=== PATIENT | male | born 1955 | race Hispanic/Latino ===

== ENCOUNTER 2019-11-17 21:12 | Inpatient (IN) | payer OTHER ==
[~2019-11-17] VITALS: Ht 167.6 cm; Wt 84.9 kg
[2019-11-17] MEDS ORDERED: CEFTRIAXONE SODIUM 2 GM VIAL ONE (21:41)
[2019-11-17 22:14] LABS: BASOPHILS % (AUTO) 0.5 % (0.0-5.0); EOSINOPHILS % (AUTO) 0.9 % (0.0-8.0); HEMATOCRIT 48.6 % (42-54); LYMPHOCYTES % (AUTO) 28.2 % (21.0-51.0); MEAN CORPUSCULAR HEMOGLOBIN 31.2 pg (27.0-33.0); MEAN CORPUSCULAR HGB CONC 30.7 g/dL (32.0-36.0); MEAN CORPUSCULAR VOLUME 101.7 fL (79-99); MONOCYTES % (AUTO) 11.7 % (3.0-13.0); NEUTROPHILS % (AUTO) 58.6 % (40.0-77.0); PLATELET COUNT (AUTO) 208 K/uL (130-400); RED BLOOD CELL COUNT(AUTO) 4.78 MIL/uL (4.50-6.20); RED CELL DISTRIBUTION WIDTH 15.6 % (11.0-15.5); WHITE BLOOD COUNT (AUTO) 8.6 K/uL (4.8-10.8)
[2019-11-17 22:21] LABS: ABG BASE EXCESS 5.8 mmol/L (-2.0-3.0); ABG HCO3 35.6 mmol/L (21.0-28.0); ABG OXYGEN SATURATION 95.1 % (95.0-99.0); ABG PCO2 77 mmHg (35-48)
[2019-11-17 22:31] LABS: CREATININE 1.3 mg/dL (0.5-1.5); POTASSIUM 3.8 mmol/L (3.5-5.1)
[2019-11-17 22:36] LABS: INR 1.12 (0.85-1.15); PARTIAL THROMBOPLASTIN TIME 24.8 SEC (26.3-35.5)
[2019-11-17 22:39] LABS: B-TYPE NATRIURETIC PEPTIDE 698 pg/mL (0-100)
[2019-11-17 22:39] LABS: APPEARANCE,URINE Clear (CLEAR); BILIRUBIN,URINE Negative (NEGATIVE); COLOR,URINE Yellow (YELLOW); GLUCOSE, URINE (UA) Negative (NEGATIVE); KETONES,URINE Negative (NEGATIVE); LEUKOCYTE ESTERASE ,URINE Negative (NEGATIVE); NITRATE,URINE Negative (NEGATIVE); OCCULT BLOOD,URINE Small (NEGATIVE); PROTEIN,URINE POS 2+ mg/dL (NEGATIVE)
[2019-11-17 22:45] LABS: ALBUMIN 3.2 g/dL (3.5-5.0); BILIRUBIN,TOTAL 0.7 mg/dL (0.2-1.0); TOTAL PROTEIN, SERUM 6.9 g/dL (6.0-8.3); TROPONIN I 0.14 ng/mL (0.00-0.06)
[2019-11-17 22:51] LABS: BACTERIA,URINE None Seen /HPF (None Seen); RBC,URINE 0-1 /HPF (0-1); SQUAMOUS EPITHELIAL CELL,UR Rare /HPF (0-2); WBC,URINE None Seen /HPF (0-1)
[2019-11-17] MEDS ORDERED: ALBUTEROL INHALER 90MCG/INH IH ONE (22:56)
[2019-11-17] MEDS ORDERED: ASPIRIN 325 MG TABLET ONE (22:56)
[2019-11-17] MEDS ORDERED: METHYLPREDNISOLONE SOD SUCC 125MG/2ML VIAL ONE (22:57)
[2019-11-17] MEDS ORDERED: NITROGLYCERIN 1GM/1 INCH PACKET TD ONE (22:57)
[2019-11-17] MEDS ORDERED: METOPROLOL TARTRATE 1 MG/ML 5ML VIAL IV ONE (23:25)
[2019-11-18] MEDS ORDERED: ALBUTEROL INHALER 90MCG/INH IH PRN (00:15)
[2019-11-18] MEDS ORDERED: DIPHENHYDRAMINE HCL 25 MG CAPSULE PO PRN (00:15)
[2019-11-18] MEDS ORDERED: NITROGLYCERIN 0.4 MG SL TAB SL PRN (00:15)
[2019-11-18] MEDS ORDERED: CEFTRIAXONE SODIUM 1 GM IVP SCH (00:15)
[2019-11-18] MEDS ORDERED: ERGOCALCIFEROL (VITAMIN D2) 50,000 UNIT CAPSULE PO ONE (00:15)
[2019-11-18] MEDS ORDERED: ONDANSETRON HCL 4 MG/2 ML VIAL IV PRN (00:15)
[2019-11-18] MEDS: AZITHROMYCIN 500MG+NS 250ML 250 ML IV SCH (00:15)
[2019-11-18] MEDS ORDERED: ACETAMINOPHEN 325 MG TAB PO PRN ×2 (00:15)
[2019-11-18 00:28] LABS: CRP QUANTITATIVE 21.1 mg/L (0.00-9.0)
[2019-11-18] MEDS ORDERED: ERGOCALCIFEROL (VITAMIN D2) 50,000 UNIT CAPSULE ONE (00:53)
[2019-11-18] MEDS ORDERED: FUROSEMIDE 10 MG/ML 4ML VIAL IV SCH ×2 (01:15→09:15)
[2019-11-18] MEDS ORDERED: IOHEXOL-350 75 ML VIAL IV ONE (01:45)
[2019-11-18 01:48] LABS: TROPONIN I 0.14 ng/mL (0.00-0.06)
[2019-11-18] MEDS ORDERED: ZOSYN 3.375GM+NS 50ML 50 ML IV ONE ×3 (04:42→22:05)
[2019-11-18] MEDS ORDERED: ZOSYN 3.375GM+NS 50ML 50 ML IV SCH (05:00)
[2019-11-18 05:45] LABS: TROPONIN I 0.14 ng/mL (0.00-0.06)
[2019-11-18] MEDS: METHYLPREDNISOLONE SOD SUCC 40MG/ML 1ML IVP SCH ×3 (06:00→22:00)
[2019-11-18] MEDS ORDERED: AZITHROMYCIN 500MG+NS 250ML 250 ML IV ONE (07:14)
[2019-11-18 08:48] LABS: ABG BASE EXCESS 3.7 mmol/L (-2.0-3.0); ABG HCO3 34.4 mmol/L (21.0-28.0); ABG PCO2 84 mmHg (35-48)
[2019-11-18] MEDS: ASCORBIC ACID 500 MG TAB PO SCH (09:00)
[2019-11-18] MEDS: ACETYLCYSTEINE 600 MG CAPSULE PO SCH ×2 (09:00→21:00)
[2019-11-18] MEDS ORDERED: ENOXAPARIN SODIUM 100 MG/1 ML SQ SCH (09:00)
[2019-11-18] MEDS: ZINC SULFATE 220 CAPSULE PO SCH (09:00)
[2019-11-18] MEDS: FAMOTIDINE 20MG TAB 20 MG TAB PO SCH (09:00)
[2019-11-18] MEDS ORDERED: ASPIRIN 325 MG TABLET PO SCH (09:00)
[2019-11-18] MEDS ORDERED: METHYLPREDNISOLONE SOD SUCC 40MG/ML 1ML ONE ×2 (09:31→18:12)
[2019-11-18] MEDS ORDERED: ASCORBIC ACID 500 MG TAB ONE (09:31)
[2019-11-18] MEDS ORDERED: ASPIRIN 81MG TAB.CHEW ONE (09:31)
[2019-11-18] MEDS ORDERED: FUROSEMIDE 10 MG/ML 4ML VIAL ONE (09:32)
[2019-11-18] MEDS ORDERED: ZINC SULFATE 220 CAPSULE ONE (09:32)
[2019-11-18] MEDS ORDERED: ACETYLCYSTEINE 600 MG CAPSULE ONE ×2 (09:32→21:10)
[2019-11-18] MEDS ORDERED: FUROSEMIDE 10 MG/ML 2ML VIAL ONE ×2 (09:34→21:10)
[2019-11-18 10:37] LABS: TROPONIN I 0.14 ng/mL (0.00-0.06)
[2019-11-18 11:06] LABS: ABG BASE EXCESS 3.2 mmol/L (-2.0-3.0); ABG HCO3 34.6 mmol/L (21.0-28.0); ABG OXYGEN SATURATION 96.4 % (95.0-99.0); ABG PCO2 91 mmHg (35-48)
--- NOTE | 2019-11-18 11:40 | NUR ---
Bipap changes made 20/[address] Robertson. Nory RN notified.
[2019-11-18] MEDS ORDERED: ENOXAPARIN SODIUM 100 MG/1 ML SQ ONE (11:41)
[2019-11-18] MEDS ORDERED: FAMOTIDINE/PF 20 MG/2 ML VIAL IV ONE (11:43)
[2019-11-18 13:50] LABS: ABG BASE EXCESS 9.4 mmol/L (-2.0-3.0); ABG OXYGEN SATURATION 93.3 % (95.0-99.0); ABG PCO2 77 mmHg (35-48)
[2019-11-18 13:50] LABS: CREATININE 1.4 mg/dL (0.5-1.5); POTASSIUM 3.7 mmol/L (3.5-5.1)
--- NOTE | 2019-11-18 15:54 | NUR ---
cm note call made to listed phone contacts for pt, and no answer. will continue to followup with pt.
[2019-11-18 16:37] LABS: HEMOGLOBIN A1C 7.2 % (4.0-6.0)
[2019-11-18 16:54] LABS: TROPONIN I 0.06 ng/mL (0.00-0.06)
[2019-11-18] MEDS: ZOSYN 3.375GM+NS 50ML 50 ML IV SCH (21:00)
[2019-11-18] MEDS: ENOXAPARIN SODIUM 30 MG/0.3 ML SQ SCH (21:00)
[2019-11-18] MEDS ORDERED: ENOXAPARIN SODIUM 30 MG/0.3 ML SQ ONE (21:11)
[2019-11-18] MEDS: ALBUTEROL SULFATE 0.083% 2.5 MG/3 ML INH IH SCH (22:00)
[2019-11-19] MEDS: AZITHROMYCIN 500MG+NS 250ML 250 ML IV SCH (00:15)
[2019-11-19 03:55] LABS: HEMATOCRIT 47.9 % (42-54); MEAN CORPUSCULAR HEMOGLOBIN 31.1 pg (27.0-33.0); MEAN CORPUSCULAR HGB CONC 31.5 g/dL (32.0-36.0); MEAN CORPUSCULAR VOLUME 98.6 fL (79-99); MONOCYTES % (AUTO) 6.9 % (3.0-13.0); NEUTROPHILS % (AUTO) 84.7 % (40.0-77.0); PLATELET COUNT (AUTO) 201 K/uL (130-400); RED BLOOD CELL COUNT(AUTO) 4.86 MIL/uL (4.50-6.20); RED CELL DISTRIBUTION WIDTH 14.9 % (11.0-15.5); WHITE BLOOD COUNT (AUTO) 8.4 K/uL (4.8-10.8)
[2019-11-19 04:07] LABS: ALANINE AMINOTRANSFERASE 58 U/L (12-78); ALBUMIN 3.2 g/dL (3.5-5.0); ASPARTATE AMINOTRANSFERASE 20 U/L (10-37); BILIRUBIN,TOTAL 1.6 mg/dL (0.2-1.0); CHLORIDE 100 mmol/L (101-111); CREATININE 1.1 mg/dL (0.5-1.5); GLOMERULAR FILTR. RATE CALC 72 mL/min (>60); GLUCOSE,RANDOM 171 mg/dL (70-105); LACTATE DEHYDROGENASE 163 U/L (81-234); POTASSIUM 3.5 mmol/L (3.5-5.1); SODIUM SERUM 144 mmol/L (136-145); UREA NITROGEN, BLOOD 20 mg/dL (7-18)
[2019-11-19 04:13] LABS: CARBON DIOXIDE 46 mmol/L (21-32)
[2019-11-19] MEDS: ALBUTEROL SULFATE 0.083% 2.5 MG/3 ML INH IH SCH ×2 (06:00→18:40)
[2019-11-19] MEDS: METHYLPREDNISOLONE SOD SUCC 40MG/ML 1ML IVP SCH ×3 (06:53→21:19)
[2019-11-19] MEDS: ZOSYN 3.375GM+NS 50ML 50 ML IV SCH ×3 (06:53→21:18)
[2019-11-19 08:17] VITALS: BP 158/94
[2019-11-19] MEDS: FAMOTIDINE 20MG TAB 20 MG TAB PO SCH (09:55)
[2019-11-19] MEDS: ASCORBIC ACID 500 MG TAB PO SCH (09:55)
[2019-11-19] MEDS: ENOXAPARIN SODIUM 30 MG/0.3 ML SQ SCH ×2 (09:56→21:18)
[2019-11-19] MEDS: ZINC SULFATE 220 CAPSULE PO SCH (09:56)
[2019-11-19] MEDS: FUROSEMIDE 10 MG/ML 2ML VIAL IV SCH ×2 (09:57→21:18)
[2019-11-19] MEDS ORDERED: ASPIRIN 81MG TAB.CHEW ONE (09:59)
[2019-11-19] MEDS: ACETYLCYSTEINE 600 MG CAPSULE PO SCH ×2 (10:02→21:18)
[2019-11-19 11:00] VITALS: BP 140/89
[2019-11-19 15:00] VITALS: BP 143/83
[2019-11-19 22:40] VITALS: BP 152/85
[2019-11-20] MEDS: AZITHROMYCIN 500MG+NS 250ML 250 ML IV SCH (02:52)
[2019-11-20 04:00] VITALS: BP 135/85
[2019-11-20 04:34] LABS: ABG BASE EXCESS 21.3 mmol/L (-2.0-3.0); ABG OXYGEN SATURATION 80.7 % (95.0-99.0); ABG PCO2 79 mmHg (35-48)
[2019-11-20 05:19] LABS: HEMATOCRIT 48.9 % (42-54); MEAN CORPUSCULAR HEMOGLOBIN 30.9 pg (27.0-33.0); MEAN CORPUSCULAR HGB CONC 31.7 g/dL (32.0-36.0); MEAN CORPUSCULAR VOLUME 97.4 fL (79-99); MONOCYTES % (AUTO) 5.1 % (3.0-13.0); NEUTROPHILS % (AUTO) 86.7 % (40.0-77.0); PLATELET COUNT (AUTO) 210 K/uL (130-400); RED BLOOD CELL COUNT(AUTO) 5.02 MIL/uL (4.50-6.20); RED CELL DISTRIBUTION WIDTH 14.9 % (11.0-15.5); WHITE BLOOD COUNT (AUTO) 8.8 K/uL (4.8-10.8)
[2019-11-20 05:35] LABS: ALANINE AMINOTRANSFERASE 46 U/L (12-78); ALBUMIN 3.2 g/dL (3.5-5.0); ASPARTATE AMINOTRANSFERASE 21 U/L (10-37); BILIRUBIN,TOTAL 1.8 mg/dL (0.2-1.0); CHLORIDE 95 mmol/L (101-111); CREATININE 1.2 mg/dL (0.5-1.5); GLOMERULAR FILTR. RATE CALC 65 mL/min (>60); GLUCOSE,RANDOM 174 mg/dL (70-105); LACTATE DEHYDROGENASE 162 U/L (81-234); POTASSIUM 3.4 mmol/L (3.5-5.1); SODIUM SERUM 141 mmol/L (136-145); UREA NITROGEN, BLOOD 22 mg/dL (7-18)
[2019-11-20 05:58] LABS: CARBON DIOXIDE 48 mmol/L (21-32)
[2019-11-20] MEDS: ALBUTEROL SULFATE 0.083% 2.5 MG/3 ML INH IH SCH ×3 (06:15→22:27)
[2019-11-20] MEDS: METHYLPREDNISOLONE SOD SUCC 40MG/ML 1ML IVP SCH ×2 (06:17→14:09)
[2019-11-20] MEDS: ZOSYN 3.375GM+NS 50ML 50 ML IV SCH ×3 (06:18→20:39)
--- NOTE | 2019-11-20 07:40 | NUR ---
ASSESSMENT ENCOUNTERED PT A&OX3 BUT FORGETFUL, CALM COOPERATIVE AND DOES NOT APPEAR TO BE IN ANY DISTRESS NOR ANY NEURO DEFICITS PRESENT NOR ANY NEURO DEFICITS PRESENT. DR FRANCO AT BEDSIDE, UPDATE GIVEN, ORDERS RECEIVED, BULLOCK CATH REMOVED, TOLERATED WELL, PT AMBULATING, GAIT SLOW BUT STEADY WITH 1-2 PERSON ASSIST, PT DENIES SOB, NAUSEA. CALL LIGHT WITHIN REACH.
[2019-11-20 08:30] VITALS: BP 132/87
[2019-11-20 11:30] VITALS: BP 152/87
[2019-11-20] MEDS: ZINC SULFATE 220 CAPSULE PO SCH (14:10)
[2019-11-20] MEDS: ACETYLCYSTEINE 600 MG CAPSULE PO SCH ×2 (14:10→20:39)
[2019-11-20] MEDS: FAMOTIDINE 20MG TAB 20 MG TAB PO SCH (14:11)
[2019-11-20] MEDS: ASPIRIN 81MG TAB.CHEW PO SCH (14:11)
[2019-11-20] MEDS: ASCORBIC ACID 500 MG TAB PO SCH (14:11)
[2019-11-20] MEDS: FUROSEMIDE 10 MG/ML 2ML VIAL IV SCH (14:12)
[2019-11-20] MEDS: ENOXAPARIN SODIUM 30 MG/0.3 ML SQ SCH ×2 (14:12→20:43)
--- NOTE | 2019-11-20 16:45 | NUR ---
MICHEL RAMIREZ/IA MET WITH PATIENT IN ROOM. PER PATIENT, LIVES WITH SPOUSE, IS INDEPENDENT WITH ADLS, NO USE OF DME, NO PROVIDER SERVICES, DRIVES, AND FEELS SAFE TO RETURN HOME ONCE DISCHARGED. Addendum: 11/20/19 at 1646 by MARGARITO ROME RN CM Amended: Links added.
[2019-11-20 17:11] VITALS: BP 140/84
[2019-11-20] MEDS ORDERED: PHARMACY COMMUNICATION MISC SCH (17:15)
[2019-11-20] MEDS ORDERED: DEXTROSE 50%-WATER 50 ML DISP.SYRIN IV PRN (17:30)
[2019-11-20] MEDS ORDERED: GLUCAGON 1MG KIT 1 MG ML IM PRN (17:30)
[2019-11-20] MEDS: INSULIN HUMULIN R 100 UNIT/ML 3ML SQ SCH ×2 (17:30→20:46)
[2019-11-20 19:30] VITALS: BP 142/82
[2019-11-20 23:47] VITALS: BP 144/92
[2019-11-21] MEDS ORDERED: LORAZEPAM 2 MG/ML 1 ML VIAL IVP ONE (01:00)
[2019-11-21] MEDS: AZITHROMYCIN 500MG+NS 250ML 250 ML IV SCH ×2 (01:02→23:58)
--- NOTE | 2019-11-21 01:02 | NUR ---
Confusion Patient continues to be confused, getting out of bed, removing his telemetry pack and pulling out his IV access. IV access 20g to right forearm replaced. HAND PROFILER Balank informed with orders for Ativan 1mg IVP x 1. patient transferred to another room and report given to Margot MANDUJANO.
[2019-11-21] MEDS ORDERED: LORAZEPAM 2 MG/ML 1 ML VIAL ONE (01:09)
--- NOTE | 2019-11-21 01:10 | NUR ---
Confused / Agitated. Pt. was just transferred to room via bed. Still confused and agitated. Ativan 1 mg via IV x 1 dose given as ordered.
[2019-11-21 04:00] VITALS: BP_SYST 106; BP_SYST 138; BP_DIAS 59; BP_DIAS 88
[2019-11-21] MEDS ORDERED: POTASSIUM CHLORIDE 10% ELIXIR 20 MEQ/15 ML UDCUP PO PRN (04:30)
[2019-11-21] MEDS ORDERED: LIDOCAINE HCL-MPF 1% 2ML VIAL IV PRN (04:30)
[2019-11-21] MEDS: ZOSYN 3.375GM+NS 50ML 50 ML IV SCH ×3 (04:54→22:29)
[2019-11-21] MEDS ORDERED: FUROSEMIDE 10 MG/ML 2ML VIAL IV SCH (05:00)
--- NOTE | 2019-11-21 05:25 | NUR ---
CONFUSED /COMBATIVE Informed on-call SUPERVISOR KENNEL ( Jagruti Cervantes) with an order to give Geodon 10 mg IM x 1 dose only.
[2019-11-21 05:28] LABS: BASOPHILS % (AUTO) 0.1 % (0.0-5.0); HEMATOCRIT 54.9 % (42-54); LYMPHOCYTES % (AUTO) 11.9 % (21.0-51.0); MEAN CORPUSCULAR HEMOGLOBIN 31.1 pg (27.0-33.0); MEAN CORPUSCULAR HGB CONC 31.7 g/dL (32.0-36.0); MONOCYTES % (AUTO) 11.5 % (3.0-13.0); NEUTROPHILS % (AUTO) 76.3 % (40.0-77.0); PLATELET COUNT (AUTO) 239 K/uL (130-400); RED CELL DISTRIBUTION WIDTH 15.3 % (11.0-15.5); WHITE BLOOD COUNT (AUTO) 13.5 K/uL (4.8-10.8)
[2019-11-21 05:45] LABS: ALBUMIN 3.7 g/dL (3.5-5.0); BILIRUBIN,TOTAL 2.6 mg/dL (0.2-1.0); CREATININE 1.1 mg/dL (0.5-1.5); CRP QUANTITATIVE 11.1 mg/L (0.00-9.0); POTASSIUM 3.7 mmol/L (3.5-5.1); TOTAL PROTEIN, SERUM 7.8 g/dL (6.0-8.3)
[2019-11-21] MEDS ORDERED: ZIPRASIDONE MESYLATE 20 MG/VIAL IM SCH (05:45)
[2019-11-21] MEDS ORDERED: ZIPRASIDONE MESYLATE 20 MG/VIAL IM ONE (05:52)
[2019-11-21] MEDS: INSULIN HUMULIN R 100 UNIT/ML 3ML SQ SCH ×4 (06:23→22:31)
[2019-11-21] MEDS: ALBUTEROL SULFATE 0.083% 2.5 MG/3 ML INH IH SCH ×3 (06:35→23:16)
[2019-11-21 07:00] VITALS: BP 110/66
--- NOTE | 2019-11-21 08:00 | NUR ---
AM ASSESSMENT PT AWAKENS WITH VERBAL STIMULATION, CONFUSED PHRASES, ORIENTED TO PERSON ONLY. RE-ORIENTED AND REDIRECTED NEEDED, SITTER AT BEDSIDE.
[2019-11-21] MEDS ORDERED: PREDNISONE 20 MG TABLET PO SCH (09:00)
[2019-11-21] MEDS: ACETYLCYSTEINE 600 MG CAPSULE PO SCH ×2 (09:00→22:29)
--- NOTE | 2019-11-21 09:47 | NUR ---
CONFIRMED PT STATUS WITH DAUGHTER ELIAS VIA PHONE PATIENT LIVES WITH SPOUSE RISSA YORK AND PREVIOUSLY INDEPENDENT AND ALERT. STATES HAS BEEN GETTING A LITTLE LOST WHEN DRIVING BUT OTHERWISE HAS NOT HAD PROBLEMS ADVISED HER THAT PATIENT IS VERY VERY CONFUSED AND FAMILY CAN COME AND VISIT AND PROVIDE INFORMATION AT BEDSIDE CHART REVIEWED, MICHEL LOOKING FOR ORDER FOR CT HEAD AND NH3, STILL PENDING TEXT TO DR. ANDERSON AND WILL REVIEW Addendum: 11/21/19 at 0953 by SANTY HARRIS RN CM Amended: Links added.
--- NOTE | 2019-11-21 10:45 | NUR ---
DR ANDERSON AWARE OF K LEVEL, NEW ORDERS RECEIVED
[2019-11-21 10:51] LABS: ABG BASE EXCESS 16.4 mmol/L (-2.0-3.0); ABG HCO3 44.8 mmol/L (21.0-28.0); ABG OXYGEN SATURATION 94.3 % (95.0-99.0); ABG PCO2 66 mmHg (35-48)
[2019-11-21 11:00] VITALS: BP 112/72
[2019-11-21 12:24] LABS: CREATININE 1.1 mg/dL (0.5-1.5); MAGNESIUM 2.1 mg/dL (1.80-2.40)
[2019-11-21 12:50] LABS: POTASSIUM 2.6 mmol/L (3.5-5.1)
[2019-11-21] MEDS: ZINC SULFATE 220 CAPSULE PO SCH (14:13)
[2019-11-21] MEDS: ASCORBIC ACID 500 MG TAB PO SCH (14:13)
[2019-11-21] MEDS: FAMOTIDINE 20MG TAB 20 MG TAB PO SCH (14:14)
[2019-11-21] MEDS: ASPIRIN 81MG TAB.CHEW PO SCH (14:14)
[2019-11-21] MEDS: POTASSIUM CHLORIDE 20 MEQ ERTAB PO SCH (14:15)
[2019-11-21] MEDS: ENOXAPARIN SODIUM 40 MG/0.4 ML SYRINGE SQ SCH (14:16)
[2019-11-21] MEDS: POTASSIUM CHLORIDE 10MEQ/100ML 100 ML IV PRN ×2 (14:17→16:45)
[2019-11-21 15:54] VITALS: BP 117/86
--- NOTE | 2019-11-21 17:00 | NUR ---
CALM PT ALERT AND CALM, NO ANXIETY OR DISTRESS, O2 PER NC, SPOUSE AT BEDSIDE.
[2019-11-21 20:00] VITALS: BP 124/80
[2019-11-21 23:55] VITALS: BP 140/96
[2019-11-22 04:09] VITALS: BP 135/94
[2019-11-22] MEDS: ZOSYN 3.375GM+NS 50ML 50 ML IV SCH ×3 (04:32→21:02)
[2019-11-22 05:45] LABS: LYMPHOCYTES % (AUTO) 12.8 % (21.0-51.0); MEAN CORPUSCULAR HEMOGLOBIN 30.6 pg (27.0-33.0); MEAN CORPUSCULAR HGB CONC 31.3 g/dL (32.0-36.0); MEAN CORPUSCULAR VOLUME 97.6 fL (79-99); MONOCYTES % (AUTO) 9.5 % (3.0-13.0); NEUTROPHILS % (AUTO) 77.5 % (40.0-77.0); PLATELET COUNT (AUTO) 199 K/uL (130-400); RED BLOOD CELL COUNT(AUTO) 5.33 MIL/uL (4.50-6.20); WHITE BLOOD COUNT (AUTO) 10.7 K/uL (4.8-10.8)
[2019-11-22 06:00] LABS: MAGNESIUM 2.4 mg/dL (1.80-2.40); POTASSIUM 3.1 mmol/L (3.5-5.1)
[2019-11-22] MEDS: INSULIN HUMULIN R 100 UNIT/ML 3ML SQ SCH ×4 (06:00→21:00)
[2019-11-22] MEDS: ALBUTEROL SULFATE 0.083% 2.5 MG/3 ML INH IH SCH ×3 (06:27→21:59)
[2019-11-22 08:00] VITALS: BP 114/75
[2019-11-22] MEDS: ASCORBIC ACID 500 MG TAB PO SCH (09:19)
[2019-11-22] MEDS: FAMOTIDINE 20MG TAB 20 MG TAB PO SCH (09:19)
[2019-11-22] MEDS: ACETYLCYSTEINE 600 MG CAPSULE PO SCH ×2 (09:19→21:02)
[2019-11-22] MEDS: ASPIRIN 81MG TAB.CHEW PO SCH (09:19)
[2019-11-22] MEDS: POTASSIUM CHLORIDE 20 MEQ ERTAB PO PRN ×2 (09:21→12:12)
[2019-11-22] MEDS: ZINC SULFATE 220 CAPSULE PO SCH (09:21)
[2019-11-22] MEDS: FUROSEMIDE 20 MG TABLET PO SCH ×2 (09:24→21:01)
[2019-11-22] MEDS: ENOXAPARIN SODIUM 40 MG/0.4 ML SYRINGE SQ SCH (09:25)
[2019-11-22 11:24] VITALS: BP 131/82
[2019-11-22] MEDS: POTASSIUM CHLORIDE 20 MEQ ERTAB PO SCH ×3 (12:01→21:01)
[2019-11-22] MEDS ORDERED: POTASSIUM CHLORIDE 20MEQ/100ML 100 ML IV PRN (14:30)
[2019-11-22] MEDS ORDERED: POTASSIUM CHLORIDE 10% ELIXIR 20 MEQ/15 ML UDCUP PO PRN (14:30)
[2019-11-22] MEDS ORDERED: POTASSIUM CHLORIDE 20 MEQ ERTAB PO PRN (14:30)
[2019-11-22] MEDS ORDERED: LIDOCAINE HCL-MPF 1% 2ML VIAL IV PRN (14:30)
[2019-11-22 16:12] VITALS: BP 141/60
--- NOTE | 2019-11-22 17:02 | NUR ---
EXPECT DC TO HOME - POSS IN AM . PATIENT MUCH IMPROVED AND MORE MOBILE THAT ON ADMIT. Addendum: 11/22/19 at 1703 by SANTY HARRIS RN CM Amended: Links added.
[2019-11-22 20:00] VITALS: BP 137/86
[2019-11-23] VITALS: BP 134/65
[2019-11-23] MEDS: AZITHROMYCIN 500MG+NS 250ML 250 ML IV SCH (01:12)
--- NOTE | 2019-11-23 02:15 | NUR ---
BIPAP REMOVED BY PATIENT, REFUSES TO HAVE ON. DARBY RT AWARE. PT HAD BIPAP ON FOR MOST OF THE NIGHT. HOB ELEVATED. NO DISTRESS NOTED.
--- NOTE | 2019-11-23 02:45 | NUR ---
BIPAP ON PATIENT, PT TOLERATING IT WELL, NO DISTRESS NOTED.
[2019-11-23 04:00] VITALS: BP 153/89
--- NOTE | 2019-11-23 04:45 | NUR ---
BIPAP REMOVED BY PATIENT, PT REFUSING BIPAP.
[2019-11-23] MEDS: ZOSYN 3.375GM+NS 50ML 50 ML IV SCH ×2 (05:07→13:12)
[2019-11-23 05:26] LABS: HEMATOCRIT 52.2 % (42-54); MEAN CORPUSCULAR HEMOGLOBIN 30.8 pg (27.0-33.0); MEAN CORPUSCULAR HGB CONC 31.2 g/dL (32.0-36.0); MEAN CORPUSCULAR VOLUME 98.5 fL (79-99); RED BLOOD CELL COUNT(AUTO) 5.3 MIL/uL (4.50-6.20); WHITE BLOOD COUNT (AUTO) 10.3 K/uL (4.8-10.8)
[2019-11-23] MEDS: INSULIN HUMULIN R 100 UNIT/ML 3ML SQ SCH ×2 (05:40→11:30)
[2019-11-23 05:53] LABS: MAGNESIUM 2.2 mg/dL (1.80-2.40); POTASSIUM 3.5 mmol/L (3.5-5.1)
[2019-11-23] MEDS ORDERED: SODIUM CHLORIDE 3% FOR INHALATION 4 ML/AMP VIAL.NEB IH ONE ×2 (06:38→14:00)
[2019-11-23] MEDS: ALBUTEROL SULFATE 0.083% 2.5 MG/3 ML INH IH SCH ×2 (06:41→14:03)
[2019-11-23 08:00] VITALS: BP 146/90
[2019-11-23] MEDS: FUROSEMIDE 20 MG TABLET PO SCH (09:04)
[2019-11-23] MEDS: POTASSIUM CHLORIDE 20 MEQ ERTAB PO SCH ×2 (09:05→13:24)
[2019-11-23] MEDS: ASPIRIN 81MG TAB.CHEW PO SCH (09:06)
[2019-11-23] MEDS: ASCORBIC ACID 500 MG TAB PO SCH (09:06)
[2019-11-23] MEDS: FAMOTIDINE 20MG TAB 20 MG TAB PO SCH (09:06)
[2019-11-23] MEDS: ACETYLCYSTEINE 600 MG CAPSULE PO SCH (09:06)
[2019-11-23] MEDS: ENOXAPARIN SODIUM 40 MG/0.4 ML SYRINGE SQ SCH (09:10)
[2019-11-23] MEDS: ZINC SULFATE 220 CAPSULE PO SCH (09:10)
[2019-11-23 12:00] VITALS: BP 126/94
--- NOTE | 2019-11-23 12:59 | NUR ---
as per Dr. Robertson, pt does not need bipap at this time. Leave pt on room air. Spo2 92%-93% pt up to chair. Denies sob at this time. Bipap at bedside if needed. Spoke to RN about convo with Dr. Robertson. Addendum: 11/23/19 at 1301 by MONTEZ LEDESMA RT Amended: Links added.
--- NOTE | 2019-11-23 13:47 | NUR ---
DR RODAS AT BESIDE AND DISCUSSED DC NEEDS- BIPAP PT UNINSURED STATES MAKE APPOINTMENT [facility]AN[facility] NUNEZ NEXT WEEK, WILL WILL SET UP HIM UP WITH SLEEP STUDY AND/ OR BIPAP NEEDED. PT NEEDS TO SLEEP ON HIS *SIDE* NOT ON HIS BACK, AND MAKE SURE HIS *HEAD IS ELEVATED* SPOKE TO ELIAS- DAUGHTER- SHE STATES THEY HAVE OXYGEN CONCENTRATOR AND NEBULIZER AT HOME LETY AMBRIZ WORKS FOR [employer]- ADVISED HER NO OXYGEN CONCENTRATOR, PLS VERBALIZED UNDERSTANDING OF IMPORTANCE OF SLEEP POSITION AND FOLLOW UP APT STATES WILL WAIT FOR CALL FROM RN
[2019-11-23 16:00] VITALS: BP 113/84
--- NOTE | 2019-11-23 17:18 | NUR ---
PT DISCHARGE IN GOOD CONDITION ACCOMPANIED BY FAMILY AND STAFF, DISCHARGE INSTRUCTIONS UNDERSTOOD, IV REMOVED AND TELEMETRY REMOVED W/O DIFFICULTY OR COMPLICATIONS
== END 2019-11-23 17:00 | disposition home or self-care (01) | DRG 871 ==
LOC: EDH 21:12 → EDHIP 21:13 → 2CV 11-18 22:25 → 4AH 11-19 21:14 → 4DH 11-20 23:24
PROVIDERS: ADMIT Internal Medicine; ATTEND Internal Medicine
DX: A41.9 Sepsis, unspecified organism (principal); J96.22 Acute and chronic respiratory failure with hypercapnia; J96.21 Acute and chronic respiratory failure with hypoxia; G92 Toxic encephalopathy; E87.2 Acidosis; Z68.41 Body mass index [BMI] 40.0-44.9, adult; R65.20 Severe sepsis without septic shock; E66.01 Morbid (severe) obesity due to excess calories; I50.9 Heart failure, unspecified; G47.33 Obstructive sleep apnea (adult) (pediatric); J84.10 Pulmonary fibrosis, unspecified; I27.81 Cor pulmonale (chronic); E87.6 Hypokalemia; J43.9 Emphysema, unspecified; M19.90 Unspecified osteoarthritis, unspecified site; N18.9 Chronic kidney disease, unspecified; N40.0 Benign prostatic hyperplasia without lower urinary tract symptoms; Z20.828 Contact with and (suspected) exposure to other viral communicable diseases
CPT/HCPCS: 36415; 36600; 70551; 71045; 71275; 80048; 80053; 81001; 82140; 82435; 82550; 82728; 82803; 82947; 82948; 83036; 83605; 83615; 83735; 83874; 83880; 84132; 84145; 84295; 84484; 85018; 85025; 85027; 85378; 85610; 85730; 86140; 86900; 86901; 87040; 87088; 87426; 87486; 87581; 87633; 87798; 87804; 93005; 93306; 93356; 93970; 94640; 94660; 94664; 97039; 99291; G0378; J0456; J0696; J1650; J1815; J1940; J2060; J2543; J2920; J2930; J3486; J3490; Q0163; Q9967; U0003

== ENCOUNTER 2020-07-28 10:50 | Inpatient (IN) | payer OTHER, SELFPAY ==
[~2020-07-28] VITALS: Ht 162.6 cm; Wt 91.4 kg
[2020-07-28 10:52] VITALS: BP 156/91
[2020-07-28 11:11] LABS: ABG BASE EXCESS 8.1 mmol/L (-2.0-3.0); ABG HCO3 36.3 mmol/L (21.0-28.0); ABG OXYGEN SATURATION 66.1 % (95.0-99.0); ABG PCO2 66 mmHg (35-48)
[2020-07-28 11:28] LABS: BASOPHILS % (AUTO) 0.9 % (0.0-5.0); EOSINOPHILS % (AUTO) 0.6 % (0.0-8.0); HEMATOCRIT 50.1 % (42-54); LYMPHOCYTES % (AUTO) 22.8 % (21.0-51.0); MEAN CORPUSCULAR HEMOGLOBIN 31.7 pg (27.0-33.0); MEAN CORPUSCULAR HGB CONC 30.3 g/dL (32.0-36.0); MEAN CORPUSCULAR VOLUME 104.6 fL (79-99); MONOCYTES % (AUTO) 9.5 % (3.0-13.0); NEUTROPHILS % (AUTO) 65.7 % (40.0-77.0); PLATELET COUNT (AUTO) 201 K/uL (130-400); RED BLOOD CELL COUNT(AUTO) 4.79 MIL/uL (4.50-6.20); RED CELL DISTRIBUTION WIDTH 14.6 % (11.0-15.5); WHITE BLOOD COUNT (AUTO) 6.3 K/uL (4.8-10.8)
[2020-07-28 11:41] LABS: INR 1.19 (0.85-1.15); PROTHROMBIN TIME 12.8 SEC (9.6-11.6)
[2020-07-28 11:42] LABS: CREATININE 1.2 mg/dL (0.5-1.5); PARTIAL THROMBOPLASTIN TIME 25.9 SEC (26.3-35.5); POTASSIUM 3.5 mmol/L (3.5-5.1)
[2020-07-28 11:55] LABS: ALBUMIN 3.3 g/dL (3.5-5.0); BILIRUBIN,TOTAL 1.1 mg/dL (0.2-1.0); TOTAL PROTEIN, SERUM 7.4 g/dL (6.0-8.3); TROPONIN I 0.16 ng/mL (0.00-0.06)
[2020-07-28 12:00] VITALS: BP 142/97
[2020-07-28 12:12] LABS: B-TYPE NATRIURETIC PEPTIDE 1290 pg/mL (0-100)
[2020-07-28] MEDS ORDERED: NITROGLYCERIN 1GM OINT 1 INCH/1GM TD ONE (13:30)
[2020-07-28] MEDS ORDERED: FUROSEMIDE 20MG VIAL IV ONE (13:30)
[2020-07-28 14:00] VITALS: BP 145/98
[2020-07-28] MEDS ORDERED: NITROGLYCERIN 0.4 MG SL TAB SL PRN (15:15)
[2020-07-28] MEDS ORDERED: ACETAMINOPHEN 500 MG TABLET PO PRN (15:15)
[2020-07-28 15:22] LABS: APPEARANCE,URINE Clear (CLEAR); BILIRUBIN,URINE Negative (NEGATIVE); COLOR,URINE Yellow (YELLOW); GLUCOSE, URINE (UA) Negative (NEGATIVE); KETONES,URINE Negative (NEGATIVE); LEUKOCYTE ESTERASE ,URINE Negative (NEGATIVE); NITRATE,URINE Negative (NEGATIVE); OCCULT BLOOD,URINE Negative (NEGATIVE); PH,URINE 5.5 (5.0-8.0); PROTEIN,URINE POS 2+ mg/dL (NEGATIVE)
[2020-07-28 15:30] LABS: AMPHET/METH SCREEN,URINE NEGATIVE (NEGATIVE); BARBITURATE SCREEN, URINE NEGATIVE (NEGATIVE); BENZODIAZEPINES SCREEN,URINE NEGATIVE (NEGATIVE); CANNABINOID SCREEN,URINE NEGATIVE (NEGATIVE); COCAINE SCREEN,URINE NEGATIVE (NEGATIVE); OPIATE SCREEN,URINE NEGATIVE (NEGATIVE); PHENCYCLIDINE SCREEN,URINE NEGATIVE (NEGATIVE); RBC,URINE 0-1 /HPF (0-1); WBC,URINE 0-1 /HPF (0-1)
[2020-07-28 15:33] LABS: BACTERIA,URINE Few /HPF (None Seen)
[2020-07-28 15:34] LABS: MUCUS,URINE Rare LPF (None Seen); SQUAMOUS EPITHELIAL CELL,UR Rare /HPF (0-2)
[2020-07-28] MEDS ORDERED: 0.9%NACL 100ML 100 ML ONE (15:42)
[2020-07-28] MEDS: CEFEPIME HCL 2 GM VIAL IVP SCH (15:45)
[2020-07-28 15:48] LABS: HEMOGLOBIN A1C 7.2 % (4.0-6.0)
[2020-07-28 15:57] LABS: CARBON DIOXIDE 44 mmol/L (21-32); CHLORIDE 103 mmol/L (101-111); CREATININE 1.3 mg/dL (0.5-1.5); GLOMERULAR FILTR. RATE CALC 59 mL/min (>60); GLUCOSE,RANDOM 172 mg/dL (70-105); POTASSIUM 3.9 mmol/L (3.5-5.1); SODIUM SERUM 148 mmol/L (136-145); UREA NITROGEN, BLOOD 20 mg/dL (7-18)
[2020-07-28 16:00] VITALS: BP 133/94
[2020-07-28 16:13] LABS: ALANINE AMINOTRANSFERASE 42 U/L (12-78); ALBUMIN 3.5 g/dL (3.5-5.0); ASPARTATE AMINOTRANSFERASE 20 U/L (10-37); BILIRUBIN,TOTAL 0.9 mg/dL (0.2-1.0); CHOLESTEROL 109 mg/dL (<200); CREATINE KINASE, TOTAL 79 U/L (21-232); HDL CHOLESTEROL 29 mg/dL (29-71); LDL DIRECT 74 mg/dL (0-99); MYOGLOBIN 59 ng/mL (10-92); THYROID STIMULATING HORMONE 1.55 uIU/mL (0.36-3.74); TOTAL PROTEIN, SERUM 7.8 g/dL (6.0-8.3); TRIGLYCERIDES 90 mg/dL (30-200); TROPONIN I 0.14 ng/mL (0.00-0.06)
[2020-07-28 16:15] LABS: ALCOHOL, BLOOD < 3 mg/dL (0-10)
[2020-07-28] MEDS: DOXYCYCLINE 100MG+NS 250ML 250 ML IV SCH (16:52)
[2020-07-28 17:44] LABS: ABG BASE EXCESS 9.1 mmol/L (-2.0-3.0); ABG HCO3 39.9 mmol/L (21.0-28.0); ABG OXYGEN SATURATION 96.8 % (95.0-99.0); ABG PCO2 87 mmHg (35-48)
[2020-07-28 18:00] VITALS: BP 134/91
[2020-07-28] MEDS: FUROSEMIDE 40MG VIAL IV SCH (18:00)
[2020-07-28] MEDS: IPRATROPIUM/ALBUTEROL SULFATE 3 ML SOLUTION IH PRN (19:16)
[2020-07-28] MEDS ORDERED: NA ZIRCON CYCLOSIL(LOKELMA 10GM) PO NR (20:45)
[2020-07-28] MEDS: INSULIN HUMULIN R 100 UNIT/ML 3ML SQ SCH (21:00)
[2020-07-28] MEDS: BUDESONIDE 0.5 MG/2 ML INH IH SCH (21:00)
[2020-07-28 21:24] LABS: ABG BASE EXCESS 12.3 mmol/L (-2.0-3.0); ABG HCO3 41.3 mmol/L (21.0-28.0); ABG OXYGEN SATURATION 90.8 % (95.0-99.0); ABG PCO2 73 mmHg (35-48)
[2020-07-28] MEDS: FAMOTIDINE 20MG VIAL IV SCH (21:41)
[2020-07-28 21:53] VITALS: BP 125/98
[2020-07-29] VITALS (19 sets, daily range): BP systolic 108–150; BP diastolic 63–95
[2020-07-29] MEDS: IPRATROPIUM/ALBUTEROL SULFATE 3 ML SOLUTION IH PRN ×3 (00:27→11:36)
[2020-07-29] MEDS: CEFEPIME HCL 2 GM VIAL IVP SCH ×2 (03:23→14:08)
[2020-07-29] MEDS: DOXYCYCLINE 100MG+NS 250ML 250 ML IV SCH ×2 (03:28→14:08)
[2020-07-29] MEDS: BUDESONIDE 0.5 MG/2 ML INH IH SCH ×2 (06:13→18:54)
[2020-07-29 06:25] LABS: BASOPHILS % (AUTO) 0.7 % (0.0-5.0); EOSINOPHILS % (AUTO) 2.1 % (0.0-8.0); LYMPHOCYTES % (AUTO) 17.7 % (21.0-51.0); MEAN CORPUSCULAR HEMOGLOBIN 31.5 pg (27.0-33.0); MEAN CORPUSCULAR HGB CONC 29.8 g/dL (32.0-36.0); MEAN CORPUSCULAR VOLUME 105.6 fL (79-99); MONOCYTES % (AUTO) 11.3 % (3.0-13.0); NEUTROPHILS % (AUTO) 68.1 % (40.0-77.0); PLATELET COUNT (AUTO) 191 K/uL (130-400); RED BLOOD CELL COUNT(AUTO) 4.64 MIL/uL (4.50-6.20); RED CELL DISTRIBUTION WIDTH 14.4 % (11.0-15.5); WHITE BLOOD COUNT (AUTO) 6.7 K/uL (4.8-10.8)
[2020-07-29 06:35] LABS: CREATININE 1.2 mg/dL (0.5-1.5); CRP QUANTITATIVE 25.8 mg/L (0.00-9.0); MAGNESIUM 1.9 mg/dL (1.80-2.40); POTASSIUM 3.3 mmol/L (3.5-5.1)
[2020-07-29] MEDS: FUROSEMIDE 40MG VIAL IV SCH ×2 (06:37→18:05)
[2020-07-29] MEDS: INSULIN HUMULIN R 100 UNIT/ML 3ML SQ SCH ×3 (07:03→16:30)
[2020-07-29] MEDS: FAMOTIDINE 20MG VIAL IV SCH ×2 (08:17→21:20)
[2020-07-29] MEDS: ENOXAPARIN SODIUM 40 MG/0.4 ML SYRINGE SQ SCH (08:18)
[2020-07-29 08:42] LABS: ABG BASE EXCESS 15.4 mmol/L (-2.0-3.0); ABG HCO3 44.7 mmol/L (21.0-28.0); ABG OXYGEN SATURATION 94.3 % (95.0-99.0); ABG PCO2 76 mmHg (35-48)
[2020-07-29] MEDS ORDERED: FAMO20TA8 PO (08:45)
[2020-07-29] MEDS ORDERED: ALBU2.5V2 NEB (08:45)
[2020-07-29] MEDS ORDERED: FLUT1DIS4 IH (09:05)
[2020-07-29] MEDS ORDERED: FLUT1BLS3 IH (09:05)
[2020-07-29] MEDS ORDERED: IPRA4AER IH (09:05)
[2020-07-29] MEDS ORDERED: POTASSIUM CHLORIDE 20MEQ/100ML 100 ML IV PRN (09:45)
[2020-07-29] MEDS: POTASSIUM CHLORIDE 10% ELIXIR 20 MEQ/15 ML UDCUP PO PRN ×3 (10:05→11:54)
[2020-07-29] MEDS ORDERED: 0.9%NACL 250ML 250 ML ONE (13:58)
[2020-07-29] MEDS: IPRATROPIUM/ALBUTEROL SULFATE 3 ML SOLUTION IH SCH (18:55)
[2020-07-30] VITALS (24 sets, daily range): BP systolic 95–146; BP diastolic 42–92
[2020-07-30] MEDS: IPRATROPIUM/ALBUTEROL SULFATE 3 ML SOLUTION IH SCH ×5 (00:32→23:33)
[2020-07-30] MEDS ORDERED: 0.9%NACL 250ML 250 ML ONE ×2 (02:54→15:15)
[2020-07-30] MEDS: CEFEPIME HCL 2 GM VIAL IVP SCH ×2 (03:07→15:19)
[2020-07-30] MEDS: DOXYCYCLINE 100MG+NS 250ML 250 ML IV SCH ×2 (03:15→15:19)
[2020-07-30 04:11] LABS: HEMATOCRIT 48.7 % (42-54); MEAN CORPUSCULAR HEMOGLOBIN 31.8 pg (27.0-33.0); MEAN CORPUSCULAR HGB CONC 30.4 g/dL (32.0-36.0); MEAN CORPUSCULAR VOLUME 104.7 fL (79-99); RED BLOOD CELL COUNT(AUTO) 4.65 MIL/uL (4.50-6.20); RED CELL DISTRIBUTION WIDTH 13.8 % (11.0-15.5); WHITE BLOOD COUNT (AUTO) 6.4 K/uL (4.8-10.8)
[2020-07-30 04:22] LABS: BILIRUBIN,TOTAL 1.8 mg/dL (0.2-1.0); CREATININE 0.9 mg/dL (0.5-1.5); MAGNESIUM 1.6 mg/dL (1.80-2.40); POTASSIUM 3.2 mmol/L (3.5-5.1); TOTAL PROTEIN, SERUM 6.9 g/dL (6.0-8.3)
[2020-07-30] MEDS: BUDESONIDE 0.5 MG/2 ML INH IH SCH ×2 (07:05→18:46)
[2020-07-30 07:17] LABS: ABG BASE EXCESS 19.6 mmol/L (-2.0-3.0); ABG HCO3 49.9 mmol/L (21.0-28.0); ABG OXYGEN SATURATION 95.2 % (95.0-99.0); ABG PCO2 84 mmHg (35-48)
[2020-07-30] MEDS: INSULIN HUMULIN R 100 UNIT/ML 3ML SQ SCH ×5 (07:28→20:58)
[2020-07-30] MEDS: FUROSEMIDE 40MG VIAL IV SCH (07:41)
[2020-07-30] MEDS: ENOXAPARIN SODIUM 40 MG/0.4 ML SYRINGE SQ SCH (07:41)
[2020-07-30] MEDS: POTASSIUM CHLORIDE 10% ELIXIR 20 MEQ/15 ML UDCUP PO PRN ×3 (07:41→10:56)
[2020-07-30] MEDS: FAMOTIDINE 20MG VIAL IV SCH ×2 (07:41→20:05)
[2020-07-30] MEDS ORDERED: MAGNESIUM 2GM PREMIX 50ML 50 ML IV SCH (08:30)
[2020-07-31] VITALS (18 sets, daily range): BP systolic 105–152; BP diastolic 62–98
[2020-07-31] MEDS ORDERED: 0.9%NACL 250ML 250 ML ONE ×2 (03:44→15:08)
[2020-07-31] MEDS: DOXYCYCLINE 100MG+NS 250ML 250 ML IV SCH ×2 (03:49→15:12)
[2020-07-31] MEDS: CEFEPIME HCL 2 GM VIAL IVP SCH ×2 (03:49→15:12)
[2020-07-31 04:57] LABS: ALBUMIN 2.9 g/dL (3.5-5.0); BILIRUBIN,TOTAL 2.2 mg/dL (0.2-1.0); CREATININE 0.8 mg/dL (0.5-1.5); POTASSIUM 3.2 mmol/L (3.5-5.1); TOTAL PROTEIN, SERUM 7.1 g/dL (6.0-8.3)
[2020-07-31] MEDS: IPRATROPIUM/ALBUTEROL SULFATE 3 ML SOLUTION IH SCH ×4 (06:27→23:05)
[2020-07-31] MEDS: BUDESONIDE 0.5 MG/2 ML INH IH SCH ×2 (06:28→18:05)
[2020-07-31] MEDS: KCL 20 MEQ ERTAB PO PRN ×3 (06:46→06:48)
[2020-07-31] MEDS: INSULIN HUMULIN R 100 UNIT/ML 3ML SQ SCH ×4 (07:30→20:57)
[2020-07-31] MEDS ORDERED: FUROSEMIDE 20MG VIAL IV SCH (09:00)
[2020-07-31] MEDS: FAMOTIDINE 20MG VIAL IV SCH ×2 (10:39→20:23)
[2020-07-31] MEDS: ENOXAPARIN SODIUM 40 MG/0.4 ML SYRINGE SQ SCH (10:44)
[2020-08-01] VITALS (17 sets, daily range): BP systolic 113–145; BP diastolic 68–93
[2020-08-01] MEDS ORDERED: 0.9%NACL 250ML 250 ML ONE (03:22)
[2020-08-01] MEDS: DOXYCYCLINE 100MG+NS 250ML 250 ML IV SCH (03:33)
[2020-08-01] MEDS: CEFEPIME HCL 2 GM VIAL IVP SCH (03:33)
[2020-08-01] MEDS: IPRATROPIUM/ALBUTEROL SULFATE 3 ML SOLUTION IH SCH ×4 (06:14→23:39)
[2020-08-01] MEDS: BUDESONIDE 0.5 MG/2 ML INH IH SCH ×2 (06:14→18:12)
[2020-08-01] MEDS: INSULIN HUMULIN R 100 UNIT/ML 3ML SQ SCH ×4 (06:26→20:20)
[2020-08-01 06:36] LABS: BASOPHILS % (AUTO) 0.9 % (0.0-5.0); EOSINOPHILS % (AUTO) 3.6 % (0.0-8.0); HEMATOCRIT 50.9 % (42-54); LYMPHOCYTES % (AUTO) 22.8 % (21.0-51.0); MEAN CORPUSCULAR HEMOGLOBIN 30.9 pg (27.0-33.0); MEAN CORPUSCULAR HGB CONC 30.8 g/dL (32.0-36.0); MEAN CORPUSCULAR VOLUME 100.2 fL (79-99); MONOCYTES % (AUTO) 12.6 % (3.0-13.0); NEUTROPHILS % (AUTO) 59.8 % (40.0-77.0); PLATELET COUNT (AUTO) 181 K/uL (130-400); RED BLOOD CELL COUNT(AUTO) 5.08 MIL/uL (4.50-6.20); RED CELL DISTRIBUTION WIDTH 13.7 % (11.0-15.5); WHITE BLOOD COUNT (AUTO) 5.9 K/uL (4.8-10.8)
[2020-08-01 06:53] LABS: ALBUMIN 2.9 g/dL (3.5-5.0); BILIRUBIN,TOTAL 1.7 mg/dL (0.2-1.0); CREATININE 0.9 mg/dL (0.5-1.5); POTASSIUM 3.6 mmol/L (3.5-5.1); TOTAL PROTEIN, SERUM 7.2 g/dL (6.0-8.3)
[2020-08-01] MEDS: ENOXAPARIN SODIUM 40 MG/0.4 ML SYRINGE SQ SCH (09:18)
[2020-08-01] MEDS: FAMOTIDINE 20MG VIAL IV SCH ×2 (09:18→20:19)
[2020-08-02] VITALS (7 sets, daily range): BP systolic 95–116; BP diastolic 61–72
[2020-08-02] MEDS: INSULIN HUMULIN R 100 UNIT/ML 3ML SQ SCH ×4 (06:05→21:00)
[2020-08-02] MEDS: IPRATROPIUM/ALBUTEROL SULFATE 3 ML SOLUTION IH SCH ×4 (06:25→23:27)
[2020-08-02] MEDS: BUDESONIDE 0.5 MG/2 ML INH IH SCH ×2 (06:36→19:07)
[2020-08-02 09:01] LABS: CREATININE 0.8 mg/dL (0.5-1.5); MAGNESIUM 2.2 mg/dL (1.80-2.40); POTASSIUM 3.8 mmol/L (3.5-5.1)
[2020-08-02] MEDS: FAMOTIDINE 20MG VIAL IV SCH ×2 (10:48→21:09)
[2020-08-02] MEDS: ENOXAPARIN SODIUM 40 MG/0.4 ML SYRINGE SQ SCH (10:48)
[2020-08-03 03:43] VITALS: BP 116/78
[2020-08-03 04:39] LABS: BASOPHILS % (AUTO) 0.7 % (0.0-5.0); EOSINOPHILS % (AUTO) 4.5 % (0.0-8.0); HEMATOCRIT 50.5 % (42-54); LYMPHOCYTES % (AUTO) 18.5 % (21.0-51.0); MEAN CORPUSCULAR HEMOGLOBIN 30.6 pg (27.0-33.0); MEAN CORPUSCULAR HGB CONC 29.9 g/dL (32.0-36.0); MEAN CORPUSCULAR VOLUME 102.4 fL (79-99); MONOCYTES % (AUTO) 14.6 % (3.0-13.0); NEUTROPHILS % (AUTO) 61.6 % (40.0-77.0); PLATELET COUNT (AUTO) 187 K/uL (130-400); RED BLOOD CELL COUNT(AUTO) 4.93 MIL/uL (4.50-6.20); RED CELL DISTRIBUTION WIDTH 13.7 % (11.0-15.5); WHITE BLOOD COUNT (AUTO) 6.9 K/uL (4.8-10.8)
[2020-08-03 04:48] LABS: CREATININE 0.8 mg/dL (0.5-1.5); POTASSIUM 3.7 mmol/L (3.5-5.1)
[2020-08-03] MEDS: KCL 20 MEQ ERTAB PO PRN ×2 (05:35→09:49)
[2020-08-03] MEDS: INSULIN HUMULIN R 100 UNIT/ML 3ML SQ SCH ×4 (05:35→20:58)
[2020-08-03] MEDS: IPRATROPIUM/ALBUTEROL SULFATE 3 ML SOLUTION IH SCH ×4 (06:30→23:57)
[2020-08-03] MEDS: BUDESONIDE 0.5 MG/2 ML INH IH SCH ×2 (06:30→18:48)
[2020-08-03 07:00] VITALS: BP 134/71
[2020-08-03] MEDS: FAMOTIDINE 20MG VIAL IV SCH ×2 (09:49→20:58)
[2020-08-03] MEDS: ENOXAPARIN SODIUM 40 MG/0.4 ML SYRINGE SQ SCH (09:49)
[2020-08-03 11:00] VITALS: BP 106/70
[2020-08-03 15:00] VITALS: BP 109/71
[2020-08-03 20:00] VITALS: BP 114/85
[2020-08-04 00:05] VITALS: BP 133/79
[2020-08-04 04:09] VITALS: BP 125/74
[2020-08-04] MEDS: INSULIN HUMULIN R 100 UNIT/ML 3ML SQ SCH ×3 (06:01→16:30)
[2020-08-04] MEDS: BUDESONIDE 0.5 MG/2 ML INH IH SCH (06:47)
[2020-08-04] MEDS: IPRATROPIUM/ALBUTEROL SULFATE 3 ML SOLUTION IH SCH ×2 (06:47→11:24)
[2020-08-04 07:12] LABS: CREATININE 0.9 mg/dL (0.5-1.5); POTASSIUM 3.9 mmol/L (3.5-5.1)
[2020-08-04 08:46] VITALS: BP 137/80
[2020-08-04] MEDS: ENOXAPARIN SODIUM 40 MG/0.4 ML SYRINGE SQ SCH (09:06)
[2020-08-04] MEDS: FAMOTIDINE 20MG VIAL IV SCH (09:06)
[2020-08-04 11:48] VITALS: BP 121/80
[2020-08-04] MEDS ORDERED: BUDE0.256 IH (14:28)
[2020-08-04] MEDS ORDERED: PRED20TA3 PO (14:31)
[2020-08-04 16:53] VITALS: BP 122/79
== END 2020-08-04 19:20 | disposition home or self-care (01) | DRG 280 ==
LOC: EDH 10:50 → EDHIP 10:51 → 2DH 07-29 07:17 → 4CH 08-01 23:42
PROVIDERS: ADMIT Internal Medicine; ATTEND Internal Medicine
PROC: 5A09457 Assistance with Respiratory Ventilation, 24-96 Consecutive Hours, Continuous Positive Airway Pressure (ICD-10-PCS; principal; 2020-07-28)
PROC: 5A0945A Assistance with Respiratory Ventilation, 24-96 Consecutive Hours, High Flow/Velocity Cannula (ICD-10-PCS; 2020-08-04)
PROC: 5A09357 Assistance with Respiratory Ventilation, Less than 24 Consecutive Hours, Continuous Positive Airway Pressure (ICD-10-PCS; 2020-08-04)
DX: I11.0 Hypertensive heart disease with heart failure (principal); J96.22 Acute and chronic respiratory failure with hypercapnia; I21.A1 Myocardial infarction type 2; J96.21 Acute and chronic respiratory failure with hypoxia; J81.0 Acute pulmonary edema; E87.0 Hyperosmolality and hypernatremia; E66.2 Morbid (severe) obesity with alveolar hypoventilation; I50.82 Biventricular heart failure; D75.89 Other specified diseases of blood and blood-forming organs; J84.10 Pulmonary fibrosis, unspecified; J44.9 Chronic obstructive pulmonary disease, unspecified; E11.9 Type 2 diabetes mellitus without complications; I34.0 Nonrheumatic mitral (valve) insufficiency; I27.81 Cor pulmonale (chronic); I50.43 Acute on chronic combined systolic (congestive) and diastolic (congestive) heart failure; Z20.822 Contact with and (suspected) exposure to COVID-19; Z68.39 Body mass index [BMI] 39.0-39.9, adult; Z74.01 Bed confinement status; Z91.19 Patient's noncompliance with other medical treatment and regimen
CPT/HCPCS: 36415; 36600; 71045; 80048; 80053; 80061; 80305; 81001; 82550; 82607; 82746; 82784; 82785; 82803; 82948; 83036; 83605; 83735; 83874; 83880; 84145; 84443; 84484; 85025; 85027; 85610; 85730; 86140; 86606; 87040; 87088; 87635; 87804; 93005; 93306; 93356; 93970; 94640; 94660; 94664; 97039; 99291; C9803; G0378; J0692; J1650; J1815; J1940; J3475; J3490; J7050